=== PATIENT | female | born 1985 | race Caucasian/White ===

== ENCOUNTER 2016-04-15 16:07 | Emergency (ER) | payer OTHER ==
[2016-04-15] MEDS ORDERED: IPRATROPIUM/ALBUTEROL 3 ML DEYVIAL IH ONE (16:27)
[2016-04-15] MEDS ORDERED: IBUPROFEN 600 MG TAB PO ONE (16:34)
[2016-04-15] MEDS ORDERED: ALBUTEROL 3 ML DEYVIAL IH ONE ×2 (16:34→16:35)
[2016-04-15] MEDS ORDERED: predniSONE 20 MG TAB ONE (16:37)
[2016-04-15] MEDS ORDERED: predniSONE 20 MG TAB PO ONE (16:37)
--- NOTE | 2016-04-15 16:58 | UCPHY ---
H & P Patient Type: Established Time Seen by Provider: 04/15/16 16:17 HPI/ROS: This patient has had increasing shortness of breath and wheeze for which she believes is asthma exacerbation over the past 4 days. She describes a dry intermittent cough along with increasing wheezing dyspnea. She has which she describes as bronchial pain with the cough. The dyspnea started over the past 2 days. She has been using her Ventolin inhaler as well as her albuterol nebs- a total of 5 nebs in the past 36 hours with minimal benefit in terms of her dyspnea and wheeze. ROS: Constitutional: No high fevers or chills. No myalgias. HEENT: No significant nasal congestion facial pain. No throat pain. Pulmonary: No pleuritic pain. No respiratory distress. Cardiovascular: No lightheaded or leg swelling or calf pain. GI: No vomiting. 10 point ROS is otherwise negative. Source: Patient Exam Limitations: No limitations - Medical/Surgical History PMH: A history of moderate asthma. She was in the emergency department within the last 6 months and had prednisone 1 month ago. She feels that her symptoms improved without treatment prior to her recurrence of her symptoms. She is not on an inhaled steroid. - Family History Significant Family History: No pertinent family hx Constitutional: Initial Vital Signs Temperature (C) 36.6 C 04/15/16 16:15 Heart Rate 93 04/15/16 16:15 Respiratory Rate 24 H 04/15/16 16:15 Blood Pressure 119/91 H 04/15/16 16:15 O2 Sat (%) 92 04/15/16 16:15 O2 Delivery Mode Room Air Allergies/Adverse Reactions: CATS Allergy (Unknown, Uncoded 04/15/16 16:51) Home Medications: Medication Instructions Recorded Albuterol 04/15/16 Albuterol Hfa Anes Only [Proair 2 puffs IH Q4 PRN #1 mdi 04/15/16 Hfa Icu (*)] Albuterol [Proventil Neb] 3 ml IH Q4 PRN #25 deyvial 04/15/16 Spironolactone 04/15/16 predniSONE 60 mg PO DAILY #14 tab 04/15/16 Medical Decision Making ED Course/Re-evaluation: DuoNeb followed by 2 more albuterol nebs Prednisone 60 mg p.o. On recheck the patient has increased aeration subjective improvement, decreased wheeze and improvement or O2 sat 96% on room air. I think that she is now safe for discharge home. I seems that she had a viral illness-URI that triggered an asthma exacerbation. - Data Points Medications Given: Discontinued Medications Albuterol (Proventil Neb) 3 ml IH EDNOW ONE Stop: 04/15/16 16:35 Last Admin: 04/15/16 16:45 Dose: 3 ml Albuterol (Proventil Neb) 3 ml IH EDNOW ONE Stop: 04/15/16 16:36 Last Admin: 04/15/16 16:55 Dose: 3 ml Albuterol/Ipratropium (Duoneb) 3 ml IH EDNOW ONE Stop: 04/15/16 16:28 Last Admin: 04/15/16 16:20 Dose: 3 ml Prednisone (Prednisone) 60 mg PO EDNOW ONE Stop: 04/15/16 16:38 Last Admin: 04/15/16 16:33 Dose: 60 mg Departure - Departure Disposition: Home, Routine, Self-Care Clinical Impression: Asthma exacerbation Condition: Good Instructions: Asthma (ED) Additional Instructions: Diagnosis: Asthma exacerbation Plan: Humidifier Prednisone-as prescribed Flovent steroid inhaler in addition Albuterol nebs or inhaler with spacer Call primary care physician to arrange follow-up appointment within the next few days for a recheck. Go to the emergency department for any significant worsening despite treatment plan Consider follow-up with the hotel room attendant (Dr. Alex Barrow) for further evaluation given your frequent exacerbations recently. Referrals: Keenan Kwon DO [Doctor of Osteopathy] - As per Instructions Alex Barrow MD [Medical Doctor] - As per Instructions Prescriptions: Albuterol [Proventil Neb] 3 ml IH Q4 PRN #25 deyvial PRN Reason: Wheezing Albuterol Hfa Anes Only [Proair Hfa Icu (*)] 2 puffs IH Q4 PRN #1 mdi PRN Reason: Wheezing predniSONE 60 mg PO DAILY #14 tab - PQRS PQRS Measurement: NA
[2016-04-15 17:02] VITALS: TEMP 97.9
[2016-04-15 17:51] VITALS: BP 125/74; PULSE 94; RESP 18; O2SAT 95
== END 2016-04-15 17:45 | disposition home or self-care (01) ==
LOC: CED 16:07
DX: J45.901 Unspecified asthma with (acute) exacerbation (principal)
CPT/HCPCS: G0463-PO